=== PATIENT | male | born 1940 | race Caucasian/White ===

== ENCOUNTER 2017-04-16 13:14 | Inpatient (IN) | payer MEDICARE ==
--- NOTE | ~2017-04-16 | DS ---
Discharge Summary [place] [id number] [facility] [place] [address] NAME: SANKET RODRIGUEZ : 38 STATUS : DIS IN PAT#: [id number] AGE: 76 ADM/REG DATE : 04/17/17 MR#: [id number] REPORT SERV DATE: 04/19/17 DICTATED BY: DATE: REPORT STATUS : Draft TRANSCRIBED BY: MODL DATE: 04/18/17 ADMISSION DATE: 04/17/2017 DISCHARGE DATE: 04/18/2017 DISCHARGE DIAGNOSES: 1. Mild acute diverticulitis. 2. Leukopenia. 3. Acute encephalopathy. 4. Coronary artery disease. 5. Chronic obstructive pulmonary disease. 6. Chronic ETOH use. 7. Chronic lower extremity wounds. 8. Ataxia, weakness, and recent falls. 9. History of lung cancer. 10.Hypertension. 11.Diabetes mellitus type 2. 12.Splenomegaly. 13.Peripheral neuropathy. CONSULTING PHYSICIANS: None. DISCHARGE MEDICATIONS: 1. Elavil 5 mg p.o. at bedtime. 2. Vitamin C 500 mg p.o. daily. 3. Aspirin 81 mg p.o. daily. 4. Tenormin 50 mg p.o. daily. 5. Plavix 75 mg p.o. daily. 6. Neurontin 800 mg p.o. t.i.d. 7. Levemir 40 units subcu b.i.d. 8. NovoLog 10 units subcu before meals. 9. Mag-Ox 400 mg p.o. b.i.d. 10.Antivert 12.5 mg p.o. t.i.d. 11.Reglan 5 mg p.o. before meals and at bedtime. 12.Singulair 10 mg p.o. at bedtime. 13.Fish oil 1200 mg p.o. daily. 14.Hytrin 10 mg p.o. at bedtime. 15.Vitamin B12 1000 mcg p.o. daily. 16.Spiriva inhaler one cap inhalation daily. 17.Vitamin E 1000 units p.o. daily. 18.Flagyl 500 mg p.o. q.8 hours x5 days. 19.Glucophage 1000 mg p.o. with breakfast and supper. 20.Trazodone 25 mg p.o. at bedtime p.r.n. as needed for sleep. 21.Levaquin 750 mg p.o. daily x5 days. IMAGING STUDIES: Imaging includes CT of the abdomen and pelvis without contrast which demonstrated minimal diverticulitis of the proximal sigmoid colon, bibasilar granulomatous Discharge Summary [place] [address] [place]. [address] NAME: SANKET RODRIGUEZ : 38 STATUS : DIS IN PAT#: [id number] AGE: 76 ADM/REG DATE : 04/17/17 MR#: [id number] REPORT SERV DATE: 04/19/17 DICTATED BY: DATE: REPORT STATUS : Draft TRANSCRIBED BY: MODL DATE: 04/18/17 calcifications and pleural thickening with calcification, left greater than right, and significant pleural effusions, splenomegaly, cholecystectomy, extensive calcific atherosclerosis. Chest x-ray PA and lateral showed a small left pleural fluid or pleural thickening similar to prior examination with left basilar consolidation/atelectasis. Parenchymal band in the right upper lobe possibly representing post radiation therapy noted to full-grown granulomatous disease with calcified mediastinal and bilateral hilar lymph nodes. CT of the brain without contrast was performed which demonstrated no acute intracranial abnormality. It did demonstrate atrophy, chronic microvascular white matter ischemic changes as well as minimal old basal ganglia lacunar infarcts with calcific atherosclerosis. For full H and P, please refer to Dr. Alton Head's dictation on 04/17/2017. HOSPITAL COURSE/PROBLEM LIST: 1. Mild acute diverticulitis. The patient did have some left lower quadrant abdominal pain on initial exam during admission; however, this is no longer present. The patient has been afebrile on Levaquin IV and Flagyl p.o. during his hospital stay. I will continue the Levaquin p.o. and Flagyl p.o. for five more days post discharge. 2. Acute encephalopathy. This is likely medication induced as well as ETOH induced. The patient admitted to drinking around 8 shots of whiskey a day. It is unclear if he was taking his medications correctly. His family most the time administers his medications for him, but multiple times the patient took his trazodone in the morning on accident and "slept all day." I will change his trazodone to p.r.n. as needed for sleep and his Elavil was decreased from 10 mg to 5 mg p.o. daily. The patient was instructed that quitting alcohol would be in his best interest. He is alert and oriented x4. He follows commands. He is able to ambulate to the bathroom with assistance, and according to his niece, "he is back to baseline." Considering the CT scan results as well as lack of fever and negative blood cultures, I do not believe this is metabolic encephalopathy due to infection. 3. Leukopenia. The patient's white blood cell count today is 2, it was 2.4 yesterday and 2.8 the day before that. I discussed this with Dr. Jarad Anderson concerning etiology. He believes this is likely due to EtOH use. However, I will make a close followup with his primary care provider within one week and have a CBC done prior to his appointment, so that this can be closely monitored. 4. Coronary artery disease. We will continue the patient's aspirin and Plavix. 5. COPD. The patient is on montelukast as well as Spiriva, we will continue these medications. I did not start the patient on long-acting beta agonists or short-acting beta agonist, and I will leave that decision to his primary care provider post discharge. 6. Chronic ETOH use. Again I instructed the patient that it would be in his best interest to quit drinking. He states that he does not have a problem and he would be able to quit on his own. 7. Ataxia, weakness, and recent falls. We had a Physical Therapy evaluation while the patient was here in the hospital. They recommended home health care, physical therapy, which I will order and we will set up prior to discharge. Discharge Summary [address] [address] NAME: SANKET RODRIGUEZ : 38 STATUS : DIS IN PAT#: [id number] AGE: 76 ADM/REG DATE : 04/17/17 MR#: [id number] REPORT SERV DATE: 04/19/17 DICTATED BY: DATE: REPORT STATUS : Draft TRANSCRIBED BY: ENOC DATE: 04/18/17 8. History of lung cancer. This is in remission. Follow up as an outpatient for monitoring of this. 9. Hypertension. I will continue the patient's atenolol. He did receive Apresoline last night for hypertension, his blood pressure was 197/88, currently his blood pressure is 172/74. I will add Norvasc 5 mg p.o. daily. Again, the patient will follow up with his primary care provider within one week who can monitor his blood pressure and adjust his medications accordingly. 10.Diabetes mellitus type 2. The patient's blood sugars have been controlled while in the hospital, ranging from 113 to 187. I will continue the patient's home regimen of Levemir 40 units b.i.d. as well as NovoLog 10 units subcu before meals, and he can follow up with his primary care provider for further management of this. 11.Splenomegaly. This is also likely ETOH induced, and he will need followup and imaging at some point, which he can do as an outpatient with his primary care provider. 12.Peripheral neuropathy. I will keep the patient on his gabapentin 800 mg p.o. t.i.d. This discharge took greater than 30 minutes to do due to medication reconciliation, outpatient followup, and education with the patient and family. DICTATED BY: ROBE Zaidi/MODL Jose Dixon NP / [id number] CC: Jarad Anderson MD
--- NOTE | ~2017-04-16 | HP ---
History And Physical [place] [id number] [facility] [place]. [address] NAME: SANKET RODRIGUEZ : 38 STATUS : ADM Ana PAT#: [id number] AGE: 76 ADM/REG DATE : 04/16/17 MR#: [id number] REPORT SERV DATE: 04/17/17 DICTATED BY: JOSE MCCARTY II DATE: 04/16/17 REPORT STATUS : Draft TRANSCRIBED BY: MODL DATE: 04/16/17 DATE OF ADMISSION: 04/16/2017 PRIMARY RADIATION ONCOLOGIST: Dr. Oliveira. CHIEF COMPLAINT: Confusion, weakness, falls, and abdominal pain. HISTORY OF PRESENT ILLNESS: The patient is a 76-year-old male with history of lung cancer, diabetes, COPD, coronary artery disease, pancytopenia, and splenomegaly, who presented to [facility] ER by family due to worsening confusion, weakness, and falls. The patient states they have been concerned about him possibly being on too much medication. The patient has at one point accidentally taken some of his nighttime sleep medicines in the morning and slept all day. Usually, one of his family members administers his medications, so these mistakes do not normally happen. He started to become more unsteady on his feet and had a couple of falls and even a day or two ago, spent the night in the floor because he fell at night and could not get back up to bed. Currently, the patient is pleasant, but not the greatest historian and his nephew at bedside gives most of the history. They say he is normally very sharp, but has been more confused lately, so they brought him in. The patient has actually not complained much about abdominal pain until being in the ER, where he was noted to have some left lower quadrant abdominal tenderness, so a CT scan of his abdomen was done and found some chronic diverticulosis, though possible mild sigmoid diverticulitis. Given his constitutional symptoms and radiographic findings, the patient was requested for admission. Otherwise, the patient denies any melena, hematochezia, diarrhea, nausea, or vomiting. Denies any fevers or chills. Denies any chest pain, shortness of breath. Family also notes he has started having difficulty with penmanship and writing his Ls backwards. REVIEW OF SYSTEMS: Otherwise, 10-point review of systems negative, except for HPI. PAST MEDICAL HISTORY: 1. Diabetes mellitus type 2, insulin dependent. 2. COPD. 3. Coronary artery disease, status post stent. 4. Obstructive sleep apnea, on CPAP. 5. Hypertension. 6. Lung cancer of the right apex, followed by Dr. Oliveira status post radiation, but no chemo or surgery and no evidence of recurrence, last seen Dr. Oliveira about four weeks ago. 7. Chronic anemia and pancytopenia. 8. Pain management for chronic back pain. 9. Chronic lower extremity wounds, diabetic ulcers, and venous stasis changes. 10.Peripheral artery disease with bilateral stent placement. 11.BPH. 12.Peripheral neuropathy. History And Physical [address] [address] NAME: SANKET RODRIGUEZ : 38 STATUS : ADM Ana PAT#: [id number] AGE: 76 ADM/REG DATE : 04/16/17 MR#: [id number] REPORT SERV DATE: 04/17/17 DICTATED BY: JOSE MCCARTY II DATE: 04/16/17 REPORT STATUS : Draft TRANSCRIBED BY: ENOC DATE: 04/16/17 13.Splenomegaly. 14.Gastric polyps with diverticulosis. 15.Gastritis. PAST SURGICAL HISTORY: 1. [place] pleurodesis with decortication at 2009. 2. Cholecystectomy. 3. Appendectomy. 4. Lumbar spine surgery at . ALLERGIES: NKDA. SOCIAL HISTORY: The patient is a and lives with family. He has a history of heavy smoking up to three packs a day, but quit 40 years ago. The patient does admit to consuming two tall tumblers of whiskey a night and he has been doing this for years. Each tumbler is probably about three or four shots piece. FAMILY HISTORY: Significant for diabetes, cancer, stroke. Three siblings with lung cancer. CURRENT MEDICATIONS: Amitriptyline, atenolol, Plavix, gabapentin, gemfibrozil, hydrochlorothiazide, magnesium oxide, meclizine, metformin, Reglan, Singulair, Prilosec, Spiriva, Symbicort, terazosin, trazodone, Levemir, NovoLog, aspirin, fish oil, vitamin E, vitamin B12, vitamin C. PHYSICAL EXAMINATION: VITAL SIGNS: Blood pressure 123/58, temperature 97.6, pulse 67, respirations 19, O2 saturation 97% on room air. GENERAL: The patient is alert and more alert, but only oriented x1. Gets the date after some prompting, does not know the president. No acute distress. NECK: Neck is supple. Nontender. No lymphadenopathy. No thyromegaly. HEENT: Moist mucous membranes. Pupils are equal, round, and reactive to light. Conjunctivae clear. RESPIRATORY: Lungs clear to auscultation bilaterally. No wheezes, rhonchi, or rales. Nonlabored breathing. CARDIOVASCULAR: Regular rate and rhythm. No murmurs, rubs, or gallops. ABDOMEN: Soft with [id number] tenderness to palpation in the left lower quadrant. No rebound or guarding. Normoactive bowel sounds. EXTREMITIES: No cyanosis, clubbing, or edema, though chronic venous stasis dermatitis changes bilaterally and a right heel ulcer with bandage clean, dry, and intact. NEURO: Cranial nerves II through XII intact. Muscle strength 5/5 bilateral in all extremities. No nystagmus or sensory deficits. LABORATORY DATA: WBC 2.8, hemoglobin 9.5, platelets 138, sodium 140, potassium 4.2, chloride 103, CO2 of 27, BUN 17, creatinine 1.12, glucose 110, calcium 91, albumin 3.6, T bilirubin 1.1, alkaline phosphatase 97, ALT 15, AST 14, troponin less than 0.02. RADIOGRAPHIC DATA: History And Physical [address] [address] NAME: SANKET RODRIGUEZ : 38 STATUS : ADM Ana PAT#: [id number] AGE: 76 ADM/REG DATE : 04/16/17 MR#: [id number] REPORT SERV DATE: 04/17/17 DICTATED BY: JOSE MCCARTY II DATE: 04/16/17 REPORT STATUS : Draft TRANSCRIBED BY: MODL DATE: 04/16/17 1. Chest x-ray shows small left pleural fluid or pleural thickening, similar to prior exam and parenchymal band in the right upper lobe, likely post radiation changes at the site of a previously spiculated lung lesion. CT of the brain with no acute intracranial abnormality, otherwise atrophy, chronic white matter ischemic changes and minimal old basal ganglia lacunar infarcts and calcific atherosclerosis. 2. CT of the abdomen and pelvis with diverticulosis with possible minimal diverticulitis at the proximal sigmoid colon with no associated free fluid. There is left basilar atelectasis or infiltrate, superimposed on probable chronic disease in this area, otherwise bibasilar granulomatous calcifications and pleural thickening with calcification left greater than right, no significant pleural effusion. Splenomegaly. Cholecystectomy. Extensive calcific atherosclerosis. 3. Urinalysis unremarkable. ASSESSMENT AND PLAN: The patient is a 76-year-old male with: 1. Likely mild acute diverticulitis. The patient is nontoxic with no leukocytosis, fever, or evidence of systemic inflammatory response syndrome. Clinically, he is quite tender in that left lower quadrant and nowhere else with radiographic evidence. We will go ahead and start the patient on Levaquin and Flagyl and check a procalcitonin. 2. Acute encephalopathy. Given the patient's history of significant alcohol use in the setting of amitriptyline, trazodone, and gabapentin, he may have a drug-induced effect, so we will discontinue trazodone and amitriptyline. We will monitor for withdrawal symptoms and provide IV thiamine replacement. His encephalopathy could also possibly be related to underlying infection from diverticulitis, though seems fairly nontoxic. 3. Chronic alcohol use as per above. 4. Ataxia, weakness, and recent falls. We will have PT evaluate, etiology possibly related to the above-mentioned cause of encephalopathy. 5. History of lung cancer, currently in remission. 6. Chronic obstructive pulmonary disease, stable. Continue home medications. 7. Coronary artery disease. 8. Chronic lower extremity wounds with current ulcer on his right lower extremity. We will have nursing do dressing changes. 9. Peripheral neuropathy. Continue gabapentin. 10.Diabetes mellitus type 2. We will continue the patient's home medicine, but do sliding scale instead of scheduled NovoLog. 11.Hypertension. Home medications. 12.We will place the patient on observation overnight and follow PT evaluation and mental status. 13.The patient is full code. 14.Deep vein thrombosis prophylaxis. Lovenox. JIMENEZ/TRAMAINEL Jose Mccarty II, MD History And Physical [address] [address] NAME: SANKET RODRIGUEZ : 38 STATUS : ADM Ana PAT#: [id number] AGE: 76 ADM/REG DATE : 04/16/17 MR#: [id number] REPORT SERV DATE: 04/17/17 DICTATED BY: JOSE MCCARTY II DATE: 04/16/17 REPORT STATUS : Draft TRANSCRIBED BY: ENOC DATE: 04/16/17 / [id number] CC: Jose Mccarty II, MD
[2017-04-16 13:13] LABS: BASOPHILS 0 %; EOSINOPHILS 2.5 %; EOSINOPHILS ABSOLUTE 0.07 10/3/uL (0.0-0.53); ER CBC TAT 0 Hrs 05 Mins; HEMATOCRIT 28.2 % (40.0-51.0); HEMOGLOBIN 9.5 g/dL (13.6-17.8); IMMATURE GRANULOCYTES 1.8 %; IMMATURE GRANULOCYTES ABSOLUTE 0.05 10/3/uL (0.0-0.11); LYMPHOCYTES 14.9 %; LYMPHOCYTES ABSOLUTE 0.42 10/3/uL (0.67-4.30); MANUAL DIFF NO %; MEAN CORPUS HGB CONC 33.7 g/dL (32.0-36.0); MEAN CORPUSCULAR HEMOGLOB 32.3 pg (26.0-34.0); MEAN CORPUSCULAR VOLUME 95.9 fL (80-100); MEAN PLATELET VOLUME 9.4 fL (9.2-13.0); MONOCYTES 17.7 %; NEUTROPHILS 63.1 %; NEUTROPHILS ABSOLUTE 1.78 10/3/uL (2.02-8.40); PLATELET COUNT 138 10/3/uL (150-400); RBC DISTRIBUTION WIDTH 14.5 % (12.0-16.0); RED CELL COUNT 2.94 10/6/uL (4.7-6.1); WHITE BLOOD CELLS 2.8 10/3/uL (4.5-10.5)
[~2017-04-16 13:14] MED LIST: ACTOS30 PO; ALAVERT10 MG PO; ALEVE220 MG PO; ALLEGRA180 PO; ALTA125 PO; AMARYL4 PO; AMIT10 PO; ANTIBIOTIC; ASAB PO; ATEN100 PO; ATEN50 PO; CLARIT10 PO; CYANO1000T PO; DCN100 PO; EFFIENT10 PO; FISH-EPA1000 MG PO; FLOMAX4 PO; FLONASE NAS; FORTAMET500 MG PO; GLUCOPHAGE1000 MG PO; GLUCOTRO10 PO; HALF81 PO; HYDROCHLOROT12.5 MG PO; HYT5 PO; HYTRIN10 MG PO; HYZAAR1 TAB PO; INHALER PO; JANUMET1 TA1 PO; LANTUS SC; LANTUSCART SC; LEVAQUIN5T PO; LEVAQUIN750 MG PO; LEVEMIR SC; LOPID6 PO; LORTAB 5 PO; MICARDIS HCT PO; MICROZIDE PO; NATURE'S OP; NEUR100 PO; NEUR300 PO; NEUR600 PO; NORCO1 TA1 PO; NOVOLOG SC; ONGLYZA; ONGLYZA PO; OXYCOD PO; OXYCODONE PO; PLAVIX PO; PRILO PO; PRIN20 PO; PROPOXY N PO; REFRESH OPH; SINGULAIR1 PO; SPIRIVA INH; STARLIX120 PO; SYMBICORT 160/41 INH INH; SYMBICORT 80/4.1 INH INH; SYMBICORT INH; TRAZ50 PO; ULTRAM50 PO; VENTOLIN HFA INH; VIT B 12; VIT C; VIT E; VITAMIN B-121000 MC1 PO; VITAMIN B-121000 MC1 SL; VITC500 PO; VITE1000 PO; ZESTORETIC1 TAB PO; ZOCOR10 PO; [UNRECOGNIZED DRUG - OTHER]; [UNRECOGNIZED DRUG - OTHER] PO
[2017-04-16 13:29] LABS: ALBUMIN 3.6 G/DL (3.5-5.0); ALKALINE PHOSPHATASE 97 U/L (45-117); BUN (BLOOD UREA NITROGEN) 17 MG/DL (6-23); CALCIUM, SERUM 9.1 MG/DL (8.5-10.4); CHLORIDE, SERUM 103 MMOL/L (96-112); CO2 (CARBON DIOXIDE) 27 MMOL/L (24-34); CREATININE 1.12 MG/DL (0.70-1.30); GFR AFRICAN AMERICAN 73 ML/MIN (>=60); GFR NON AFRICAN AMERICAN 63 ML/MIN (>=60); GLOBULIN 3.6 G/DL (2.5-4.1); POTASSIUM, SERUM 4.2 MMOL/L (3.5-5.3); SGOT(AST) 14 U/L (5-40); SGPT(ALT) 15 U/L (5-65); SODIUM, SERUM 140 MMOL/L (135-148); TOTAL PROTEIN 7.2 G/DL (6.0-8.5); TROPONIN I <0.02 NG/ML (<0.05)
[2017-04-16 13:33] LABS: GLUCOSE, SERUM 110 MG/DL (60-99); TOTAL BILIRUBIN 1.1 MG/DL (0-1.2)
[2017-04-16 15:34] LABS: ASCORBIC ACID (UR NOT ORDER) NEG (NEG); BILIRUBIN, URINE NEGATIVE (NEG); ER URINALYSIS TAT 0 Hrs 14 Mins; KETONE, URINE NEGATIVE (NEG); LEUKOCYTE ESTERASE(NOT OR NEG (NEG); NITRITE (URINE) NEG (NEG); WBC (NOT ORDERED) (RFLEX) 1 (0-5)
[2017-04-16] MEDS ORDERED: AMIT10 PO (22:12)
[2017-04-16] MEDS ORDERED: MAGOX4 PO (22:13)
[2017-04-16] MEDS ORDERED: PLAVIX PO (22:13)
[2017-04-16] MEDS ORDERED: ATEN50 PO (22:13)
[2017-04-16] MEDS ORDERED: NEUR800 PO (22:13)
[2017-04-16] MEDS ORDERED: GLUCOPHAGE1000 MG PO (22:14)
[2017-04-16] MEDS ORDERED: MCZ125 PO (22:14)
[2017-04-16] MEDS ORDERED: SINGULAIR1 PO (22:14)
[2017-04-16] MEDS ORDERED: REG5 PO (22:14)
[2017-04-16] MEDS ORDERED: NOVOLOG SC (22:15)
[2017-04-16] MEDS ORDERED: TRAZ50 PO (22:15)
[2017-04-16] MEDS ORDERED: HYTRIN10 MG PO (22:15)
[2017-04-16] MEDS ORDERED: SPIRIVA INH (22:15)
[2017-04-16] MEDS ORDERED: LEVEMIR SC (22:15)
[2017-04-16] MEDS ORDERED: FISH OIL1200 MG PO (22:16)
[2017-04-16] MEDS ORDERED: ASAB PO (22:16)
[2017-04-16] MEDS ORDERED: VITE1000 PO (22:16)
[2017-04-16] MEDS ORDERED: CYANO1000T PO (22:18)
[2017-04-16] MEDS ORDERED: VITC500 PO (22:19)
[2017-04-16 23:49] LABS: FERRITIN 117 NG/ML (26-388); IRON BINDING CAPACITY 239 MCG/DL (250-450); IRON, SERUM 53 MCG/DL (35-150)
[2017-04-17 00:21] LABS: PROCALCITONIN <0.05 ng/mL (<0.5)
[2017-04-17 07:04] LABS: BASOPHILS 0 %; EOSINOPHILS 4.2 %; HEMATOCRIT 28.3 % (40.0-51.0); HEMOGLOBIN 9.4 g/dL (13.6-17.8); IMMATURE GRANULOCYTES 1.7 %; IMMATURE GRANULOCYTES ABSOLUTE 0.04 10/3/uL (0.0-0.11); LYMPHOCYTES 17.3 %; LYMPHOCYTES ABSOLUTE 0.41 10/3/uL (0.67-4.30); MEAN CORPUS HGB CONC 33.2 g/dL (32.0-36.0); MEAN CORPUSCULAR HEMOGLOB 31.6 pg (26.0-34.0); MEAN CORPUSCULAR VOLUME 95.3 fL (80-100); MEAN PLATELET VOLUME 9.7 fL (9.2-13.0); MONOCYTES 11.8 %; MONOCYTES ABSOLUTE 0.28 10/3/uL (0.21-1.20); NEUTROPHILS ABSOLUTE 1.54 10/3/uL (2.02-8.40); PLATELET COUNT 138 10/3/uL (150-400); RBC DISTRIBUTION WIDTH 14.4 % (12.0-16.0); RED CELL COUNT 2.97 10/6/uL (4.7-6.1)
[2017-04-17 07:05] LABS: WHITE BLOOD CELLS 2.4 10/3/uL (4.5-10.5)
[2017-04-17 07:06] LABS: MANUAL DIFF NO %
[2017-04-17 07:26] LABS: BUN (BLOOD UREA NITROGEN) 17 MG/DL (6-23); CALCIUM, SERUM 8.8 MG/DL (8.5-10.4); CHLORIDE, SERUM 107 MMOL/L (96-112); CO2 (CARBON DIOXIDE) 27 MMOL/L (24-34); CREATININE 0.97 MG/DL (0.70-1.30); FOLATE 7.4 NG/ML (>5.2); GFR AFRICAN AMERICAN 86 ML/MIN (>=60); GFR NON AFRICAN AMERICAN 74 ML/MIN (>=60); GLUCOSE, SERUM 61 MG/DL (60-99); POTASSIUM, SERUM 4.1 MMOL/L (3.5-5.3); SODIUM, SERUM 140 MMOL/L (135-148)
[2017-04-18 06:58] LABS: HEMATOCRIT 30.7 % (40.0-51.0); HEMOGLOBIN 10.2 g/dL (13.6-17.8); MEAN CORPUS HGB CONC 33.2 g/dL (32.0-36.0); MEAN CORPUSCULAR HEMOGLOB 31.6 pg (26.0-34.0); MEAN PLATELET VOLUME 9.6 fL (9.2-13.0); PLATELET COUNT 138 10/3/uL (150-400); RBC DISTRIBUTION WIDTH 14.3 % (12.0-16.0); RED CELL COUNT 3.23 10/6/uL (4.7-6.1)
[2017-04-18 07:01] LABS: MANUAL DIFF YES %
[2017-04-18 07:07] LABS: BUN (BLOOD UREA NITROGEN) 10 MG/DL (6-23); CHLORIDE, SERUM 106 MMOL/L (96-112); CO2 (CARBON DIOXIDE) 27 MMOL/L (24-34); CREATININE 0.91 MG/DL (0.70-1.30); GFR AFRICAN AMERICAN 93 ML/MIN (>=60); GFR NON AFRICAN AMERICAN 80 ML/MIN (>=60); GLUCOSE, SERUM 126 MG/DL (60-99); PHOSPHORUS, SERUM 3.6 MG/DL (2.5-4.5); POTASSIUM, SERUM 3.9 MMOL/L (3.5-5.3); SODIUM, SERUM 140 MMOL/L (135-148)
[2017-04-18 07:20] LABS: EOSINOPHILS 4 %; EOSINOPHILS ABSOLUTE (CALC) 0.08 10/3/uL (0.0-0.53); IMMATURE GRANS ABSOLUTE (CALC) 0.04 10/3/uL (0.0-0.11); LYMPHOCYTES 22 %; LYMPHOCYTES ABSOLUTE (CALC) 0.44 10/3/uL (0.67-4.30); METAMYELOCYTES 2 %; MONOCYTES 8 %; MONOCYTES ABSOLUTE (CALC) 0.16 10/3/uL (0.21-1.20); NEUTROPHILS ABSOLUTE (CALC) 1.28 10/3/uL (2.02-8.40); PLATELET ESTIMATE SLT DEC (ADEQUATE); SEGMENTED NEUTROPHIL (0) 64 %; TOTAL NUCLEATED CELLS 50
[2017-04-18 07:21] LABS: POLYCHROMASIA 1+ (2-5/OIF) (0-1/OIF)
[2017-04-18] MEDS ORDERED: LEVAQUIN750 MG PO (09:31)
[2017-04-18] MEDS ORDERED: FLAG500TAB PO (09:31)
[2017-04-18] MEDS ORDERED: NORV5 PO (09:32)
[2017-04-18] MEDS ORDERED: AMIT10 PO (09:33)
== END 2017-04-18 12:52 | disposition home health service (06) | DRG 391 ==
LOC: ER 13:14 → 4EA 17:37
PROVIDERS: Emergency Medicine; Internal Medicine
DX: K57.92 Diverticulitis of intestine, part unspecified, without perforation or abscess without bleeding (principal); G93.40 Encephalopathy, unspecified; G62.9 Polyneuropathy, unspecified; J44.9 Chronic obstructive pulmonary disease, unspecified; C34.90 Malignant neoplasm of unspecified part of unspecified bronchus or lung; E11.9 Type 2 diabetes mellitus without complications; I25.10 Atherosclerotic heart disease of native coronary artery without angina pectoris; I10 Essential (primary) hypertension; R16.1 Splenomegaly, not elsewhere classified
CPT/HCPCS: 70450; 71020; 74176; 80048; 80053; 81001; 82140; 82607; 82728; 82746; 82962; 83540; 83550; 83615; 83735; 84100; 84145; 84484; 85025; 87040; 93005; 97161-GP; 99285; A9270-GY; G8978-CK-GP; G8979-CK-GP; G8980-CJ-GP; J0360; J1170; J1956; J3411